=== PATIENT | female | born 1955 | race Caucasian/White ===

== ENCOUNTER 2016-05-26 08:11 | Day surgery (SDC) | payer BC ==
[2016-05-26] MEDS ORDERED: Lactated Ringers 1,000 ML IV SCH (08:15)
[2016-05-26] MEDS ORDERED: Propofol 200 MG/20 ML SDV IV ONE (10:15)
[2016-05-26] MEDS ORDERED: Midazolam 1 MG/ML 2 ML SDV IV ONE (10:15)
[2016-05-26] MEDS ORDERED: Lidocaine 2% 100 MG/5 ML Syringe IVPUSH ONE (10:15)
[2016-05-26] MEDS ORDERED: Ondansetron 4 MG/2 ML SDV IVPUSH ONE (10:15)
--- NOTE | 2016-05-26 10:46 | PCM.OPNOTE ---
- General Post-Op/Procedure Note Date of Surgery/Procedure: 05/26/16 Operative Procedure(s): egd with bx Findings: gastroduodenitis esophagitis. hiatal hernia Pre Op Diagnosis: gerd Post-Op Diagnosis: gastroduodenitis. esophagitis. hiatal hernia Anesthesia Technique: [facility] Primary Surgeon: Jr Fall Anesthesia Provider: oSphie Trujillo Pathology: stomach, duodenum and distal esophagus Complications: None Condition: Good Free Text/Narrative:: see dictation
--- NOTE | 2016-05-26 11:48 | OR ---
DATE OF OPERATION: 05/26/2016 SURGEON: Jr Fall MD PROCEDURE PERFORMED: Upper endoscopy. PREOPERATIVE DIAGNOSIS: Symptomatic gastroesophageal reflux disease. POSTOPERATIVE DIAGNOSES: Gastroduodenitis, hiatal hernia, and esophagitis. INDICATIONS FOR PROCEDURE: This is a 60-year-old white female, who is referred with worsening of gastroesophageal reflux-like symptoms. She was offered and accepted an EGD. DESCRIPTION OF OPERATION: After an excellent IV sedation was administered, the bite block was inserted. The flexible endoscope was passed without difficulty down the patient's esophagus into the stomach. The stomach was insufflated. The scope was passed through the pylorus to the second portion of the duodenum and slowly withdrawn. The following findings were noted. First portion of the duodenum, duodenitis, biopsies taken. The stomach demonstrated diffuse gastritis, multiple biopsies were taken. There also appears that she had scarring, a possible healing ulcer in the antrum, biopsies were taken of this area as well. On retroflexion of the scope, there was evidence of a hiatal hernia. GE junction measured approximately 37 cm, and esophagitis noted just proximal to this. Circumferential biopsies were taken. The remainder of the esophageal exam was unremarkable. The stomach was deflated, scope was removed. The patient tolerated the procedure well and was taken to recovery in good condition. /[id number] /LAWRENCEL
[2016-05-26 12:19] VITALS: BP 120/72
== END 2016-05-26 11:45 | disposition home or self-care (01) ==
LOC: FB.SDS 08:11
PROVIDERS: ATTEND Surgery
DX: K29.50 Unspecified chronic gastritis without bleeding (principal); K20.9 Esophagitis, unspecified; K21.9 Gastro-esophageal reflux disease without esophagitis; Z79.82 Long term (current) use of aspirin; Z79.899 Other long term (current) drug therapy; J30.2 Other seasonal allergic rhinitis; Z98.890 Other specified postprocedural states; Z98.51 Tubal ligation status
CPT/HCPCS: 43239; 88305; 88313; 88342; J2250; J2405; J2704; J7120

== ENCOUNTER 2017-03-12 21:33 | Emergency (ER) | payer BC ==
--- NOTE | 2017-03-12 21:50 | EDM.PDOC ---
ED HPI GENERAL MEDICAL PROBLEM - General Stated Complaint: HIGH BLOODPRESSURE Time Seen by Provider: 03/12/17 21:33 Source of Information: Reports: Patient, Family History Limitations: Reports: No Limitations - History of Present Illness INITIAL COMMENTS - FREE TEXT/NARRATIVE: 61 years old w f was transferred from the clinic to the ED because of HTN and sinus pain/right sided H/A going down her neck. Pt denied Trauma, has a h/o sinusitis, Influenza A was neg at the clinic. BP 167/87 Pulse 78 Temp 36.8 Onset: Gradual Onset Date: 03/10/17 Onset Time: 08:00 Duration: Day(s):, Getting Worse, Intermittent Location: Reports: Face, Neck Quality: Reports: Ache, Burning, Dull, Pressure, Stabbing Severity: Mild Improves with: Reports: Rest Worsens with: Reports: Movement Context: Reports: Sick Contact Associated Symptoms: Reports: Other (HTN) R frontal DENISE Pain Score (Numeric/FACES): 3 - Related Data Allergies Allergy/AdvReac Type Severity Reaction Status Date / Time No Known Allergies Allergy Verified 03/12/17 21:42 Home Meds: Home Meds Albuterol [Ventolin HFA] 1 - 2 puff IH ASDIRECTED PRN 05/25/16 [History] Aspirin [Ecotrin] 81 mg PO DAILY 05/25/16 [History] Fexofenadine [Mulu] 180 mg PO DAILY PRN 05/25/16 [History] Hydrochlorothiazide 12.5 mg PO DAILY 05/25/16 [History] Ibuprofen 400 mg PO ASDIRECTED PRN 05/25/16 [History] Lactobac Cmb #3/Fos/Pantethine [Probiotic & Acidophilus] 1 ea PO DAILY 05/25/16 [History] Multivitamin with Minerals [Multiple Vitamin] 1 ea PO DAILY 05/25/16 [History] Ranitidine HCl [Ranitidine] 150 mg PO DAILY 05/25/16 [History] Amoxicillin/Potassium Clav [Augmentin 875-125 Tablet] 1 each PO BID #20 tablet 03/12/17 [Rx] Cholecalciferol (Vitamin D3) [Vitamin D3] 2,000 unit PO DAILY 03/12/17 [History] Famotidine 10 mg PO BID 03/12/17 [History] Ranitidine HCl [Ranitidine] 300 mg BEDTIME 03/12/17 [History] Past Medical History Cardiovascular History: Reports: Hypertension, Other (See Below) Other Cardiovascular History: HX PALPITATIONS Respiratory History: Reports: None Gastrointestinal History: Reports: GERD Musculoskeletal History: Reports: None Neurological History: Reports: None Psychiatric History: Reports: None Endocrine/Metabolic History: Reports: None Hematologic History: Reports: None Immunologic History: Reports: None Oncologic (Cancer) History: Reports: None Dermatologic History: Reports: Eczema - Past Surgical History HEENT Surgical History: Reports: Oral Surgery Female Surgical History: Reports: Section, Tubal Ligation Musculoskeletal Surgical History: Reports: Carpal Tunnel Social & Family History - Tobacco Use Smoking Status *Q: Never Smoker - Caffeine Use Caffeine Use: Reports: Coffee - Alcohol Use Days Per Week of Alcohol Use: 2 - Recreational Drug Use Recreational Drug Use: No Drug Use in Last 12 Months: No ED ROS ENT - Review of Systems Review Of Systems: See Below Constitutional: Reports: No Symptoms HEENT: Reports: Sinus Problem Respiratory: Reports: No Symptoms Cardiovascular: Reports: No Symptoms Endocrine: Reports: No Symptoms GI/Abdominal: Reports: No Symptoms : Reports: No Symptoms Musculoskeletal: Reports: No Symptoms Skin: Reports: No Symptoms Neurological: Reports: No Symptoms Psychiatric: Reports: No Symptoms Hematologic/Lymphatic: Reports: No Symptoms Immunologic: Reports: No Symptoms ED EXAM, ENT - Physical Exam Exam: See Below Exam Limited By: No Limitations General Appearance: Alert, WD/WN, Mild Distress Eye Exam: Bilateral Eye: Normal Inspection Ears: Normal External Exam, Normal Canal, Hearing Grossly Normal, Normal TMs Nose: Normal Inspection, Normal Mucousa, No Blood Mouth/Throat: Normal Inspection, Normal Gums, Normal Lips, Normal Oropharynx Head: Atraumatic, Normocephalic Neck: Normal Inspection, Supple, Non-Tender, Full Range of Motion Respiratory/Chest: No Respiratory Distress, Lungs Clear, Normal Breath Sounds, No Accessory Muscle Use, Chest Non-Tender Cardiovascular: Normal Peripheral Pulses, Regular Rate, Rhythm, No Edema, No Gallop, No JVD, No Murmur, No Rub GI/Abdominal: Normal Bowel Sounds, Soft, Non-Tender, No Organomegaly, No Distention, No Abnormal Bruit, No Mass, Pelvis Stable (Female) Exam: Deferred Rectal (Female) Exam: Deferred Back: Normal Inspection, Full Range of Motion Extremities: Normal Inspection Neurological: Alert, Oriented, CN II-XII Intact, Normal Cognition, Normal Gait Psychiatric: Normal Affect, Normal Mood Skin: Warm, Dry, Intact, Normal Color, No Rash Lymphatic: No Adenopathy Course - Vital Signs Text/Narrative:: 61 years old w f was transferred from the clinic to the ED because of HTN and sinus pain/right sided H/A going down her neck. Pt denied Trauma, has a h/o sinusitis, Influenza A was neg at the clinic. BP 167/87 Pulse 78 Temp 36.8 PE: Sinus tenderness, HTN Imaging: Sinusitis Impression: Sinusitis and HTN Tx: Augmentin Reexam: BP improved Plan: D/C with instructions Last Recorded V/S: Last Vital Signs Temp 36.3 C 03/12/17 21:40 Pulse 69 03/12/17 21:40 Resp 18 03/12/17 23:15 BP 152/64 H 03/12/17 23:15 Pulse Ox 99 03/12/17 23:15 - Orders/Labs/Meds Meds: Medications Discontinued Medications Generic Name Dose Route Start Last Admin Trade Name Chidi PRN Reason Stop Dose Admin Amoxicillin/Clavulanate Potassium 1 tab 03/12/17 23:15 03/12/17 23:40 Augmentin 875 Mg/125 Mg PO 03/12/17 23:16 1 tab ONETIME ONE Administration Departure - Departure Time of Disposition: 23:17 Disposition: Home, Self-Care 01 Condition: Good Clinical Impression: Sinusitis Qualifiers: Sinusitis location: sphenoidal Chronicity: subacute Qualified Code(s): J01.30 - Acute sphenoidal sinusitis, unspecified Hypertension Qualifiers: Hypertension type: essential hypertension Qualified Code(s): I10 - Essential ( primary) hypertension - Discharge Information Prescriptions: Amoxicillin/Potassium Clav [Augmentin 875-125 Tablet] 1 each PO BID #20 tablet Instructions: Sinusitis, Adult, [id number], Hypertension, [id number] Referrals: Julieta Alvarez NP [Primary Care Provider] - Forms: ED Department Discharge Additional Instructions: Please take Augmentin as recommended, Please follow up with Eye, Ears, Nose & Throat doctor about frequent sinus problems, please check your blood pressure daily, follow up in 3 days with regular MD for recheck. Please come back to the ED if your symptoms get worse acutely.
[2017-03-12] MEDS ORDERED: Amoxicillin/Clavulanate K 875-125 MG Tab PO ONE (23:15)
[2017-03-12 23:57] VITALS: BP 152/64
== END 2017-03-12 23:45 | disposition home or self-care (01) ==
LOC: FB.ED 21:33
DX: J01.30 Acute sphenoidal sinusitis, unspecified (principal); I10 Essential (primary) hypertension; K21.9 Gastro-esophageal reflux disease without esophagitis; Z79.82 Long term (current) use of aspirin; Z79.899 Other long term (current) drug therapy
CPT/HCPCS: 70486; 99283; A9270

== ENCOUNTER 2018-09-30 07:19 | Day surgery (SDC) | payer BC ==
[~2018-09-30 07:19] MED LIST: Lactated Ringers 1,000 ML IV SCH; Sodium Chloride 0.9% 10 ML Syringe FLUSH PRN
[2018-09-30] MEDS ORDERED: Propofol 200 MG/20 ML SDV IV ONE (07:20)
[2018-09-30] MEDS ORDERED: Scopolamine 1.5 MG Transdermal Patch TOP ONE (07:20)
[2018-09-30] MEDS ORDERED: Ondansetron 4 MG/2 ML SDV IVPUSH ONE (07:20)
[2018-09-30] MEDS ORDERED: Albuterol/Ipratropium 3.0-0.5 MG/3 ML Neb Soln NEB ONE (09:29)
--- NOTE | 2018-09-30 09:30 | PCM.OPNOTE ---
- General Post-Op/Procedure Note Date of Surgery/Procedure: 09/30/18 Operative Procedure(s): c scope with bx Findings: descending colon polyp Pre Op Diagnosis: screening Post-Op Diagnosis: descending colon polyp Anesthesia Technique: MAC Primary Surgeon: Jr Fall Anesthesia Provider: Humphrey Rutledge Pathology: colon polyp Complications: None Condition: Good Free Text/Narrative:: see dictation
--- NOTE | 2018-09-30 09:53 | OR ---
DATE OF OPERATION: 09/30/2018 SURGEON: Jr Fall MD PROCEDURE PERFORMED: Colonoscopy, cold forceps biopsy. PREOPERATIVE DIAGNOSIS: Need for screening C-scope. POSTOPERATIVE DIAGNOSIS: Descending colon polyp. INDICATIONS FOR PROCEDURE: This 63-year-old female presents for routine followup scope. She was offered and accepted same. DESCRIPTION OF OPERATION: After an excellent IV sedation was administered, digital rectal exam was performed. No marked abnormality was noted. Flexible colonoscope was inserted and advanced to the cecum. The prep was excellent, following findings were noted; ascending colon unremarkable and transverse colon unremarkable. Descending colon, there was splenic flexure, appeared to be a small polyp was encountered, biopsied with cold biopsy forceps and sent for permanent. Sigmoid unremarkable. Rectum and anus unremarkable. Colon was deflated. Scope was removed. The patient tolerated the procedure well. Results by letter. /[id number] /JEAN
[2018-09-30 11:28] VITALS: BP 137/67
== END 2018-09-30 10:46 | disposition home or self-care (01) ==
LOC: FB.SDS 07:19
PROVIDERS: ATTEND Surgery
DX: Z12.11 Encounter for screening for malignant neoplasm of colon (principal); D12.4 Benign neoplasm of descending colon; I10 Essential (primary) hypertension; K21.9 Gastro-esophageal reflux disease without esophagitis; J45.909 Unspecified asthma, uncomplicated; R13.10 Dysphagia, unspecified; Z79.51 Long term (current) use of inhaled steroids; Z79.82 Long term (current) use of aspirin; Z79.899 Other long term (current) drug therapy
CPT/HCPCS: 45380; 88305; A9270; J2405; J2704; J7120; J7620-GY

== ENCOUNTER 2024-08-06 06:17 | Day surgery (SDC) | payer MEDICARE, OTHER ==
[~2024-08-06 06:17] MED LIST changes: -Lactated Ringers 1,000 ML IV SCH
[2024-08-06] MEDS ORDERED: Lidocaine 2% 100 MG/5 ML Syringe IVPUSH ONE (06:18)
[2024-08-06] MEDS ORDERED: Propofol 200 MG/20 ML SDV IV ONE (06:18)
[2024-08-06 06:41] VITALS: BP 155/72; PULSE 75
[2024-08-06] MEDS: Lactated Ringers 1,000 ML IV SCH (07:09)
[2024-08-06] MEDS: Simethicone Drops 40 MG/0.6 ML 30 ML Bottle ONE (07:14)
== END 2024-08-06 08:50 | disposition home or self-care (01) ==
LOC: FB.SDS 06:17
PROVIDERS: ATTEND Surgery
DX: Z12.11 Encounter for screening for malignant neoplasm of colon (principal); Z86.0101 Personal history of adenomatous and serrated colon polyps; J45.909 Unspecified asthma, uncomplicated; I10 Essential (primary) hypertension; K21.9 Gastro-esophageal reflux disease without esophagitis; E66.9 Obesity, unspecified; Z68.32 Body mass index [BMI] 32.0-32.9, adult; Z79.899 Other long term (current) drug therapy
CPT/HCPCS: 45378; A9270; J2704; J7120; 00811